=== PATIENT | male | born 1950 | race Caucasian/White ===

== ENCOUNTER → 2018-02-23 | Outpatient (CLI) | payer MEDICARE ==
[~2018-02-23] MED LIST: CLARITIN 1010 MG/TAB PO; ZESTRIL40 MG PO; ZOCOR 40MG40 MG PO
== END ==
LOC: COL.VAS 08:49
DX: I08.3 Combined rheumatic disorders of mitral, aortic and tricuspid valves (principal)

== ENCOUNTER → 2019-07-16 | Outpatient (CLI) | payer MEDICARE, BC | LOC: COL.VAS 07-13 12:45 | DX: I08.0 Rheumatic disorders of both mitral and aortic valves (principal) ==